=== PATIENT | female | born 1950 | race Two or more races ===

== ENCOUNTER 2022-04-27 10:51 | Outpatient (CLI) | payer OTHER | END 2022-04-27 10:55 | disposition home or self-care (01) | LOC: SONOGRAMA 10:51 | PROVIDERS: ATTEND Pathology Anatomic Pathology | DX: D34 Benign neoplasm of thyroid gland (principal); E04.9 Nontoxic goiter, unspecified; E04.2 Nontoxic multinodular goiter ==

== ENCOUNTER 2025-03-26 07:50 | Outpatient (CLI) | payer OTHER | END 2025-03-26 07:53 | disposition home or self-care (01) | LOC: TOM 07:50 | PROVIDERS: ATTEND Internal Medicine Gastroenterology | DX: K56.600 Partial intestinal obstruction, unspecified as to cause (principal); K92.2 Gastrointestinal hemorrhage, unspecified; D50.9 Iron deficiency anemia, unspecified ==